=== PATIENT | female | born 1970 | race Asian ===

== ENCOUNTER 2020-01-31 17:08 | Emergency (ER) | payer OTHER, SELFPAY ==
[2020-01-31 17:20] VITALS: BP 117/81; PULSE 79; RESP 16; TEMP 36.2; O2SAT 100
--- NOTE | 2020-01-31 17:20 | PC.NURSE ---
in br to obtain ua spec.
--- NOTE | 2020-01-31 17:29 | ED.GENADULT ---
HPI - General Adult General Chief complaint: Urogenital-Female Stated complaint: Possible Uti Time Seen by Provider: 01/31/20 17:29 Source: patient Mode of arrival: ambulatory Limitations: no limitations History of Present Illness HPI narrative: 49-year-old female patient presents to the [facility] with complaints of urinary symptoms that started today. Patient states she has had increase in urgency, frequency and burning with urination. Denies any back pain, fevers, nausea, vomiting or diarrhea. Related Data Home Medications Medication Instructions Recorded Confirmed lorazepam 0.5 mg tablet 0.5 mg PO DAILY PRN 01/28/20 01/28/20 Allergies Allergy/AdvReac Type Severity Reaction Status Date / Time Cat Dander Allergy Mild Unknown Uncoded 01/28/20 10:37 Review of Systems Review of Systems: Narrative: CONSTITUTIONAL: Denies fever, chills, or sweats. EYES: Denies visual changes, redness, or discharge. ENT: Denies rhinorrhea, congestion, sore throat, or otalgia. CARDIOVASCULAR: Denies chest pain, palpitations, or edema. RESPIRATORY: Denies cough or dyspnea. GASTROINTESTINAL: Denies abdominal pain, nausea, vomiting, or diarrhea. GENITOURINARY: Denies dysuria or hematuria. Positive pain with urination, increase in urgency and frequency SKIN: Denies rash or itching. MUSCULOSKELETAL: Denies back pain, joint pain, or myalgia. NEUROLOGIC: Denies headache, numbness, or weakness. PSYCHIATRIC: Denies anxiety or depression. [facility] Past Medical History Medical History Decreased sex drive Depression Surgical History Surgical History History of tubal ligation Previous section Sprain of anterior talofibular ligament Brostrom Repair Family History Family History Father Family history of malignant neoplasm of esophagus Family history of type 2 diabetes mellitus Patient's father is Hypertension Mother Family history of type 2 diabetes mellitus Hypertension Grandparent Family history of type 2 diabetes mellitus Heart disease Hypertension Social History Social History Smoking status: Never smoker Alcohol intake: never Additional occupation/education comments: [employer] Comments At the time of my signature I agree with nursing past medical history, surgical, social, and family history. There is no relevant family history pertinent to the presenting complaint. Exam Narrative: Exam Narrative: GENERAL: Well-appearing, well-nourished, and in no acute distress. HEAD: Normocephalic, atraumatic. EYES: PERRLA and EOMI. ENT: Nares clear, no rhinorrhea or epistaxis. Mucous membranes moist. NECK: Supple. No lymphadenopathy CHEST: Clear to auscultation. No respiratory distress. HEART: Regular rate and rhythm. No murmur heard. Normal peripheral pulses. ABDOMEN: Soft, nontender, nondistended, normal active bowel sounds. No CVA tenderness on percussion. EXTREMITIES: Normal range of motion. No edema. SKIN: Warm, dry, no rash. NEURO: No focal deficits. Alert and oriented x3. Course Vital Signs Vital signs: Vital Signs Temperature 36.2 C L 01/31/20 17:20 Pulse Rate 79 01/31/20 17:20 Respiratory Rate 16 01/31/20 17:20 Blood Pressure 117/81 01/31/20 17:20 Pulse Oximetry 100 01/31/20 17:20 Temperature 36.2 C L 01/31/20 17:20 Pulse Rate 79 01/31/20 17:20 Respiratory Rate 16 01/31/20 17:20 Blood Pressure 117/81 01/31/20 17:20 Pulse Oximetry 100 01/31/20 17:20 Vital signs reviewed. The patient has been informed that they may have pre-hypertension or Hypertension based on a BP reading in the department. I recommend that the patient call the primary care provider listed on their discharge instructions or a physician of their choice this week t
== END 2020-01-31 17:43 | disposition home or self-care (01) ==
PROVIDERS: Emergency Provider Nurse Practitioner Family; PCP Family Medicine Adolescent Medicine
DX: N30.01 Acute cystitis with hematuria (principal); F32.9 Major depressive disorder, single episode, unspecified; F41.9 Anxiety disorder, unspecified; R03.0 Elevated blood-pressure reading, without diagnosis of hypertension
CPT/HCPCS: 81003; 87077; 87086; 87088; 87186; 99213; G0463

== ENCOUNTER 2020-02-07 07:07 | Outpatient (CLI) | payer OTHER, SELFPAY ==
--- NOTE | ~2020-02-07 | MM_ITS ---
EXAMINATION: MM screening serafin BI w keiko HISTORY: Screening mammogram TECHNIQUE: Craniocaudal and mediolateral oblique 3-D tomosynthesis images were obtained and synthetic 2-D images were generated. CAD analysis was submitted and interpreted. COMPARISON: 02/07/2020 bilateral digital screening mammogram BREAST PARENCHYMAL COMPOSITION: The breasts are heterogeneously dense, which may obscure small masses . FINDINGS: There is no evidence of suspicious mass, calcification, or architectural distortion to sugg est malignancy in either breast. There has been no suspicious interval change. IMPRESSION: 1. No mammographic evidence of malignancy. 2. Recommend routine screening mammography in one year. BI-RADS Category 1: Negative Reviewed, dictated and finalized at location A.
== END 2020-02-07 07:08 | disposition home or self-care (01) ==
PROVIDERS: PCP Family Medicine Adolescent Medicine; Visit Provider Obstetrics & Gynecology
DX: Z12.31 Encounter for screening mammogram for malignant neoplasm of breast (principal)
CPT/HCPCS: 77063; 77067

== ENCOUNTER → 2020-04-06 10:31 | Outpatient (CLI) | payer OTHER, SELFPAY ==
--- NOTE | ~2020-04-06 | MR_ITS ---
EXAMINATION: MR shoulder RT wo con DATE: 04/06/2020 11:16 INDICATION: Right shoulder pain TECHNIQUE: Magnetic resonance imaging (MRI) of the right shoulder was performed without intravenous c ontrast. Sequences included axial PD-weighted FS FSE, coronal oblique PD-weighted FS FSE, coronal obl ique T2-weighted FS FSE, sagittal PD-weighted FS FSE, and sagittal T1-weighted SE. COMPARISON: None. FINDINGS: Coracoacromial arch: The acromion undersurface is curved in morphology (type II). The coracoacromial ligament is normal. N egligible acromioclavicular osteoarthritis. Rotator cuff: Mild tendinopathy without discrete tear at the distal supraspinatus and conjoined portion of the supr aspinatus and infraspinatus tendons. The more posterior infraspinatus tendon and teres minor tendon a re normal. The subscapularis tendon is normal. Normal rotator cuff muscle bulk and signal. Biceps tendon, glenoid labrum and glenohumeral cartilage: Long head of the biceps tendon is normal. Glenoid labrum is normal. Nonuniform mild partial thickness cartilage loss along portions of the humeral head with mild subchondral edema at the apex of the hum eral head. Fluid: Small amount of fluid in the long head biceps tendon sheath disproportionate to the physiologic amoun t of fluid in the glenohumeral joint space consistent with mild bicipital tenosynovitis. No loose ost eochondral bodies. Small amount of fluid in the subacromial/subdeltoid bursa consistent with mild bur sitis. Bones: Bone alignment is normal. No fracture or pathologic marrow replacing process. IMPRESSION: 1. Mild supraspinatus and anterior infraspinatus tendinopathy without discrete tear. 2. Mild glenohumeral and minimal acromioclavicular osteoarthritis. 3. Mild bicipital tenosynovitis and mild subacromial/subdeltoid bursitis. Reviewed, dictated and finalized at location A.
== END ==
PROVIDERS: PCP Family Medicine Adolescent Medicine; Visit Provider Orthopaedic Surgery
DX: M19.011 Primary osteoarthritis, right shoulder (principal); M75.21 Bicipital tendinitis, right shoulder
CPT/HCPCS: 73221

== ENCOUNTER → 2020-12-28 10:11 | Outpatient (CLI) | payer OTHER, SELFPAY ==
[2020-12-28 19:28] LABS: SARS-CoV-2 RNA PCR Negative
== END ==
PROVIDERS: PCP Family Medicine Adolescent Medicine; Visit Provider Family Medicine Adolescent Medicine
DX: Z20.822 Contact with and (suspected) exposure to COVID-19 (principal); R50.9 Fever, unspecified; R53.83 Other fatigue
CPT/HCPCS: C9803; U0003; U0005

== ENCOUNTER → 2021-04-26 07:20 | Outpatient (CLI) | payer OTHER, SELFPAY ==
[2021-04-27 18:17] LABS: SARS-CoV-2 RNA PCR Negative
== END ==
PROVIDERS: PCP Family Medicine Adolescent Medicine; Visit Provider Family Medicine Adolescent Medicine
DX: J02.9 Acute pharyngitis, unspecified (principal); R53.83 Other fatigue
CPT/HCPCS: C9803; U0003; U0005

== ENCOUNTER → 2021-09-11 10:11 | Outpatient (CLI) | payer OTHER, SELFPAY ==
--- NOTE | ~2021-09-11 | MR_ITS ---
EXAMINATION: MR foot RT wo con DATE: 09/11/2021 11:12 INDICATION: Right foot stress fracture. Right foot pain. TECHNIQUE: Magnetic resonance imaging (MRI) of the right foot was performed without intravenous contr ast. Sequences included axial, coronal, and sagittal PD-weighted FS FSE and PD-weighted FS FSE. COMPARISON: Right foot radiographs 04/06/2021 FINDINGS: Bone alignment is normal. No fracture. Bone marrow signal intensity is normal. The talar do me is normal. The deltoid ligament is normal. The anterior and posterior talofibular ligaments and ca lcaneofibular ligament are normal. There are changes of prior sprain of anterior tibiofibular ligamen t characterized by increased signal intensity. Posterior tibiofibular ligament is normal. The peronea l tendons and anterior and medial ankle tendons are normal. Achilles tendon is normal. The musculatur e is normal. The plantar fascia is normal. There is a skin marker at the plantar aspect of the hindfo ot. IMPRESSION: 1. No etiology for the patient's symptoms. 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
== END ==
PROVIDERS: PCP Family Medicine Adolescent Medicine; Visit Provider Podiatrist Foot & Ankle Surgery
DX: M84.374A Stress fracture, right foot, initial encounter for fracture (principal)
CPT/HCPCS: 73718

== ENCOUNTER → 2022-10-24 13:18 | Outpatient (CLI) | payer OTHER, SELFPAY ==
--- NOTE | ~2022-10-24 | DEXA_ITS ---
Bone Density Report Name: KRYSTYNA HINTON Age: 52 Sex: Female Ethnicity: White Date of : 1970 Indication: postmenopausal; screening for osteoporosis; Referring Provider: JAGUAR NAVARRO Study: Bone densitometry was performed. Exam Date: October 24, 2022 Accession number: [id number] Bone Density: Region BMD T-score Z-score Classification AP Spine (L1-L4) 0.875 -1.6 -0.6 Osteopenia Femoral Neck (Left) 0.556 -2.6 -1.7 Osteoporosis Total Hip (Left) 0.668 -2.2 -1.6 Osteopenia Femoral Neck (Right) 0.563 -2.6 -1.6 Osteoporosis Total Hip (Right) 0.699 -2.0 -1.4 Osteopenia Total Hip Mean 0.684 -2.1 -1.5 Osteopenia World Health Organization criteria for BMD impression classify patients as: Normal (T-score at or above -1.0), Osteopenia (T-score between -1.0 and -2.5), or Osteoporosis (T-score at or below -2.5). Clinical Information Provided by Patient: Patient maximum height was 65 Menopause Age: 49 Drinks caffeinated beverages Onset of menses at age 10 Number of children 1 Impression: The patient has osteoporosis, based on the Left Femoral Neck T-score. Discussion: INCREASED RISK OF FRACTURE. BONE DENSITY IS UNDESIRABLY LOW AT ONE OR MORE SKELETAL SITES, CONSISTENT WITH POSTMENOPAUSAL OSTEOPOROSIS. This patient's lowest T-score meets the World Health Organization's (WHO) criteria for osteoporosis at one or more sites (T-score -2.5 or below). In untreated patients, the risk of osteoporotic fracture increases approximately two-fold for each 1.0 SD decrease in T-score. Low bone density is not the only risk factor for fracture; also consider factors such as patient's age, frailty or poor health, risk of falling, risk of injury, previous osteoporotic fracture, family history of osteoporosis, cigarette smoking, low body weight, etc. Not everyone with low bone mineral density has osteoporosis; osteomalacia and other metabolic bone disorders should also be considered. Patients who have osteoporosis should be evaluated for specific diseases and conditions (secondary causes) that may cause or contribute to bone loss. The [place] Association of Clinical Endocrinologists (AACE) and National Osteoporosis Foundation (NOF) recommend pharmacologic intervention for all postmenopausal women whose T-score is in this range. The patient should follow a healthful lifestyle (good nutrition with adequate calcium and vitamin D, and appropriate weight-bearing exercise). Follow-Up: Consider a repeat BMD and Vertebral Fracture Assessment (VFA) exam in 2 years or sooner if medically necessary, to reassess this patient's status. Reported by: ANSHU on 10/24/2022 1:45:00 PM. Reviewed, dictated and finalized at location AL[facility] CARLOS
== END ==
PROVIDERS: PCP Family Medicine Adolescent Medicine; Visit Provider Family Medicine Adolescent Medicine
DX: M81.0 Age-related osteoporosis without current pathological fracture (principal); Z78.0 Asymptomatic menopausal state
CPT/HCPCS: 77080

== ENCOUNTER → 2023-01-25 08:22 | Outpatient (CLI) | payer OTHER, SELFPAY ==
--- NOTE | ~2023-01-25 | US_ITS ---
Abdominal Sonogram: Real-time sonographic imaging of the abdomen was performed. Clinical History: Abdominal pain Findings: The liver appears normal with no evidence of solid mass lesion or bile duct dilatation. Sm all right hepatic lobe cysts noted. Main portal vein demonstrates normal direction of flow. The splee n is normal in size without evidence of focal lesion. The gallbladder is well distended, and appears normal with no evidence of gallstone or wall thickening. The common bile duct measures 8 mm. The vi sualized pancreas, aorta, and IVC are unremarkable. The right kidney measures 10.9 cm in length and the left kidney measures 11.3 cm. There is no hydronephrosis or renal calculus. Impression: No significant abnormality seen. Reviewed, dictated and finalized at [facility]. Impression: No significant abnormality seen.
== END ==
PROVIDERS: PCP Family Medicine Adolescent Medicine; Visit Provider Family Medicine Adolescent Medicine
DX: R10.11 Right upper quadrant pain (principal)
CPT/HCPCS: 76700

== ENCOUNTER 2024-04-02 07:46 | Outpatient (NON) | payer OTHER, SELFPAY | END 2024-04-02 07:47 | disposition home or self-care (01) | LOC: ANHLAB 04-03 07:47 | PROVIDERS: PCP Family Medicine Adolescent Medicine; Visit Provider Internal Medicine Gastroenterology | DX: R10.11 Right upper quadrant pain (principal); K21.9 Gastro-esophageal reflux disease without esophagitis | CPT/HCPCS: 88305 ==

== ENCOUNTER 2024-04-02 08:08 | Day surgery (SDC) | payer OTHER, SELFPAY ==
[2024-03-13 13:49] VITALS: BMI 21.7
--- NOTE | 2024-04-02 10:01 | P.HP_ITS ---
History of Present Illness History of Present Illness Consent: Risks, benefits, and alternatives have been discussed and questions answered. Patient agrees to proceed with procedure. Chief complaint: Right upper quadrant pain. Narrative: Beverley Easley is a 53 year old female who was referred for investigation of right upper quadrant pain. Review of Systems Review of Systems: All systems reviewed & are unremarkable except as noted in HPI and below PMFSH Past Medical History Medical History Anxiety Atrophic vaginitis Colon cancer screening Decreased sex drive Depression Family history of esophageal cancer Plantar fasciitis of right foot Weight gain Surgical History Surgical History History of tubal ligation Previous section Sprain of anterior talofibular ligament (05/2016) Brostrom Repair Family History Family History Father Family history of malignant neoplasm of esophagus Family history of type 2 diabetes mellitus Patient's father is Hypertension Mother Family history of type 2 diabetes mellitus Hypertension Grandparent Family history of type 2 diabetes mellitus Heart disease Hypertension Other Arthritis Cerebrovascular accident Depression Diabetes mellitus Esophageal cancer High cholesterol Kidney disorder Social History Social History Smoking status: Never smoker Alcohol intake: never Substance use: never Substance use type: does not use Living arrangements: with family Additional living arrangements comments: With Occupation/Education: occupation Additional occupation/education comments: [employer] Gender identity (if verbalized by the patient): Female Meds Home Medications and Allergies Home Medications Medication Instructions Recorded Confirmed Type cholecalciferol (vitamin D3) 10 20 mcg PO DAILY 03/01/24 04/02/24 History mcg (400 unit) capsule Pepcid AC 1 tab-cap PO DIRECTED 03/18/24 04/02/24 History licorice root (G.glabra) 1 tab-cap PO DIRECTED 03/18/24 04/02/24 History multivitamin 1 tablet PO DAILY 03/18/24 04/02/24 History polaprezinc (zinc carnosine) 1 tab-cap PO DIRECTED 03/18/24 04/02/24 History Allergies Allergy/AdvReac Type Severity Reaction Status Date / Time Cat Dander Allergy Mild Unknown Uncoded 04/02/24 10:01 Exam Const: General: alert Orientation/consciousness: patient oriented x3 Resp: Auscultation: clear to auscultation bilaterally Cardio: Rhythm: regular rhythm GI: GI Palp: Yes Soft to palpation and No Tenderness to palpation present (GI) Neuro: General: patient oriented x3 Assessment and Plan Assessment and plan (1) RUQ abdominal pain: Code(s): R10.11 - Right upper quadrant pain Status: Acute Assessment and Plan: EGD with possible biopsy or dilatation or cautery.
[2024-04-02 10:05] VITALS: BP 100/62; PULSE 70; RESP 20; TEMP 36.7; BMI 21.1
[2024-04-02] MEDS: LACTATED RINGERS 1,000 ML 150 ML IV CONT (10:20)
--- NOTE | 2024-04-02 10:49 | WPDANESEPPF ---
Anes - Initial Pre Proc Eval Procedure: Operation Date: 04/02/24 11:00 Proposed Procedures p Esophagogastroduodenoscopy - Farhat Crowley MD Date/Time: 04/02/24 10:49 Surgeon: Farhat Crowley MD Pre Op Diagnosis: Right upper quadrant pain. Patient Data Age: 53 Gender: F Height: 1.65 m Weight: 57.6 kg Last Vital Signs Temp 36.7 C 04/02/24 10:05 Pulse 70 04/02/24 10:05 Resp 20 04/02/24 10:05 BP 100/62 04/02/24 10:05 Allergies Allergy/AdvReac Type Severity Reaction Status Date / Time Cat Dander Allergy Mild Unknown Uncoded 04/02/24 10:01 Home Medications Medication Instructions Recorded Confirmed Type cholecalciferol (vitamin D3) 10 20 mcg PO DAILY 03/01/24 04/02/24 History mcg (400 unit) capsule Pepcid AC 1 tab-cap PO DIRECTED 03/18/24 04/02/24 History licorice root (G.glabra) 1 tab-cap PO DIRECTED 03/18/24 04/02/24 History multivitamin 1 tablet PO DAILY 03/18/24 04/02/24 History polaprezinc (zinc carnosine) 1 tab-cap PO DIRECTED 03/18/24 04/02/24 History Patient hx anesthesia problems: none Family hx anesthesia problems: none Results Review: All pre-operative results and documents have been reviewed as part of the pre-operative evaluation. [facility] Past Medical History Medical History Anxiety Atrophic vaginitis Colon cancer screening Decreased sex drive Depression Family history of esophageal cancer Plantar fasciitis of right foot Weight gain Surgical History Surgical History History of tubal ligation Previous section Sprain of anterior talofibular ligament (05/2016) Brostrom Repair Family History Family History Father Family history of malignant neoplasm of esophagus Family history of type 2 diabetes mellitus Patient's father is Hypertension Mother Family history of type 2 diabetes mellitus Hypertension Grandparent Family history of type 2 diabetes mellitus Heart disease Hypertension Other Arthritis Cerebrovascular accident Depression Diabetes mellitus Esophageal cancer High cholesterol Kidney disorder Social History Social History Smoking status: Never smoker Alcohol intake: never Substance use: never Substance use type: does not use Living arrangements: with family Additional living arrangements comments: With Occupation/Education: occupation Additional occupation/education comments: [employer] Gender identity (if verbalized by the patient): Female Anes - Eval Final PreProcedure Day of Procedure 04/02/24 10:49 Patient weight: normal Heart: regular rate and rhythm Lungs: clear to auscultation Airway: Mallampati scale class II Neurological: alert and oriented Last oral intake: >/= 8 hours ASA classification: II Emergent: no Anesthetic plan: proceed Anesthesia type and monitoring: general GIVS and standard monitoring Results Review: All pre-operative results and documents have been reviewed as part of the pre-operative evaluation. Informed Consent: The patient's anesthetic plan and its attendant risks and benefits were discussed with the patient/family/POA. Questions were solicited and answers provided to the satisfaction of the patient/family/POA.
[2024-04-02 11:15] VITALS: BP 98/62; PULSE 70; RESP 18; O2SAT 100
[2024-04-02 11:25] VITALS: BP 98/68; PULSE 63; RESP 20; O2SAT 100
[2024-04-02 11:35] VITALS: BP 96/75; PULSE 64; RESP 20; O2SAT 100
--- NOTE | 2024-04-02 11:43 | WPDANESPN ---
Anes - Prog Note Post-Op Date/Time: 04/02/24 11:43 Cardiovascular status: normal Respiratory status: normal Airway patency: baseline Mental status: baseline Post-Op hydration status: normal Vital Signs: Last Vital Signs Temp 36.7 C 04/02/24 10:05 Pulse 63 04/02/24 11:25 Resp 20 04/02/24 11:25 BP 98/68 L 04/02/24 11:25 Pulse Ox 100 04/02/24 11:25 O2 Del Method Room Air 04/02/24 11:25 Pain Score (VAS): 0/10 I/O: Intake & Output 04/01/24 04/02/24 04/02/24 23:59 07:59 15:59 Intake Total 500 Balance 500 Patient Feedback: Patient satisfied with anesthetic care.
== END 2024-04-02 11:57 | disposition home or self-care (01) ==
PROVIDERS: PCP Family Medicine Adolescent Medicine; Visit Provider Internal Medicine Gastroenterology
PROC: 0DJ08ZZ Inspection of Upper Intestinal Tract, Via Natural or Artificial Opening Endoscopic (ICD-10-PCS; CPT 43235; principal; 2024-04-02 11:00)
DX: R10.11 Right upper quadrant pain (principal); K21.9 Gastro-esophageal reflux disease without esophagitis
CPT/HCPCS: 43239

== ENCOUNTER 2024-10-25 07:51 | Outpatient (CLI) | payer OTHER, SELFPAY ==
--- NOTE | ~2024-10-25 | US_ITS ---
US abdomen limited INDICATION: Postprandial abdomen pain PROCEDURE: Realtime right upper abdominal ultrasound. COMPARISON: Ultrasound dated 01/25/2023 FINDINGS: The pancreas is normal without focal mass or pancreatic ductal dilation. There are liver c ysts, largest measuring 1.6 cm. There is normal directional flow in the portal vein. The gallbladder is normal without stones, gallbladder wall thickening or pericholecystic fluid. Comm on bile duct measures 6 mm. No sonographic Allison's sign. IMPRESSION: 1: Liver cysts. Reviewed, dictated and finalized at location A. 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
== END 2024-10-25 07:52 | disposition home or self-care (01) ==
LOC: MICIMG 07:52
PROVIDERS: PCP Family Medicine Adolescent Medicine; Visit Provider Nurse Practitioner Family
DX: K76.89 Other specified diseases of liver (principal)
CPT/HCPCS: 76705